=== PATIENT | female | born 1940 | race Caucasian/White ===

== ENCOUNTER → 2018-01-18 | Outpatient (CLI) | payer MEDICARE, OTHER ==
[~2018-01-18] MED LIST: ETAN50PE3 SQ; LEVO-210 PO
[2018-01-18 07:09] LABS: PLATELET COUNT, AUTOMATED 170 K/uL (150-450)
[2018-01-18 09:24] LABS: LDL CHOLESTEROL 95 mg/dl
== END ==
LOC: LAB 06:50
PROVIDERS: ATTEND Family Medicine
DX: E78.5 Hyperlipidemia, unspecified (principal); E03.9 Hypothyroidism, unspecified; D72.819 Decreased white blood cell count, unspecified; M06.9 Rheumatoid arthritis, unspecified
CPT/HCPCS: 36415; 82040; 82247; 82310; 82374; 82435; 82465; 82565; 82947; 83718; 84075; 84132; 84155; 84295; 84443; 84450; 84460; 84478; 84520; 85025

== ENCOUNTER 2018-06-18 02:47 | Day surgery (SDC) | payer MEDICARE, OTHER ==
[~2018-06-18] VITALS: Ht 167.6 cm; Wt 62.6 kg
[~2018-06-18 02:47] MED LIST changes: +LEVO150T78 PO
[2018-06-18 13:25] VITALS: BP 176/97
[2018-06-18] MEDS ORDERED: OPHTHALMIC PROCEDURE 2 OS PRN ×2 (14:00)
[2018-06-18] MEDS ORDERED: OPHTHALMIC PROCEDURE 1 OS PRN (14:00)
[2018-06-18] MEDS ORDERED: LIDOCAINE/SOD BICARB 8.4% SYR ID ONE (14:30)
[2018-06-18] MEDS ORDERED: NORMOSOL R SOLN(*) 1000 ML BAG 1,000 ML IV PRN (14:30)
[2018-06-18] MEDS ORDERED: acetaZOLAMIDE 500 MG CAPCR PO ONE (15:30)
[2018-06-18] MEDS ORDERED: MIDAZOLAM 2 MG/2 ML VIAL ONE (15:33)
[2018-06-18 15:37] VITALS: BP 147/77
--- NOTE | 2018-06-18 18:08 | FOSTER LEFT EYE CATARACT ---
EVENT DATE: June 18, 2018 SURGEON: Margarito Cao MD ANESTHESIA: Topical PREOPERATIVE DIAGNOSIS Cataract, left eye. POSTOPERATIVE DIAGNOSIS Cataract, left eye. PROCEDURE Phacoemulsification of cataractous lens with implantation of an intraocular lens, left eye. DESCRIPTION OF PROCEDURE The risks, benefits, and alternatives were carefully discussed with the patient, and preoperative consent was obtained. The patient was brought to the operating room after receiving topical anesthetic. The patient was prepped and draped using sterile technique in the usual manner. A stab incision was made, and the chamber was inflated with preservative-free lidocaine. DuoVisc was injected to inflate the chamber. A 2.2 mm blade was used to enter the anterior chamber. Utrata forceps were used to tear a circular capsulorrhexis. BSS was used to hydrodissect the nucleus. Phaco tip was introduced, and the nucleus was chopped into four quadrants. Each quadrant was removed. The I/A tip was used to remove the cortex. The bag was inflated with ProVisc. The intraocular lens was injected into the capsular bag. The I/A tip was used to remove the ProVisc. The wound was found to be watertight. Vigamox, Nevanac, and Maxitrol ointment were placed in the patient's eye. The patient's eye was patched, and the patient was taken to the recovery room in stable condition. The patient was examined in the recovery room and found to be stable prior to release from the hospital. JOSE
== END 2018-06-18 15:48 | disposition home or self-care (01) ==
LOC: OR 02:47
PROVIDERS: ATTEND Ophthalmology
DX: H25.12 Age-related nuclear cataract, left eye (principal)
CPT/HCPCS: 66984; A9270; J2250; V2632

== ENCOUNTER 2018-08-13 03:25 | Day surgery (SDC) | payer MEDICARE, OTHER ==
[~2018-08-13] VITALS: Ht 167.6 cm; Wt 62.6 kg
[2018-08-13] MEDS ORDERED: OPHTHALMIC PROCEDURE 1 OD PRN (13:30)
[2018-08-13] MEDS ORDERED: OPHTHALMIC PROCEDURE 2 OD PRN ×2 (13:30)
[2018-08-13] MEDS ORDERED: NORMOSOL R SOLN(*) 1000 ML BAG 1,000 ML IV PRN (13:30)
[2018-08-13] MEDS ORDERED: LIDOCAINE/SOD BICARB 8.4% SYR ID ONE (13:30)
[2018-08-13] MEDS ORDERED: acetaZOLAMIDE 500 MG CAPCR PO ONE (13:30)
[2018-08-13 14:04] VITALS: BP 170/75
[2018-08-13 14:58] VITALS: BP 130/81
[2018-08-13] MEDS ORDERED: PROPOFOL EMUL(*) 10MG/ML 20 ML 20 ML ONE (15:06)
[2018-08-13] MEDS ORDERED: MIDAZOLAM 2 MG/2 ML VIAL ONE (15:06)
--- NOTE | 2018-08-13 18:01 | FOSTER LEFT EYE CATARACT ---
EVENT DATE: August 13, 2018 SURGEON: Margarito Cao MD ANESTHESIOLOGIST: Alek Sharma MD ANESTHESIA: MAC PREOPERATIVE DIAGNOSIS Cataract, right eye. POSTOPERATIVE DIAGNOSIS Cataract, right eye. PROCEDURE Phacoemulsification of cataractous lens with implantation of an intraocular lens, right eye. DESCRIPTION OF PROCEDURE The risks, benefits, and alternatives were carefully discussed with the patient, and preoperative consent was obtained. The patient was brought to the operating room after receiving topical anesthetic. The patient was prepped and draped using sterile technique in the usual manner. A stab incision was made, and the chamber was inflated with preservative-free lidocaine. DuoVisc was injected to inflate the chamber. A 2.2 mm blade was used to enter the anterior chamber. Utrata forceps were used to tear a circular capsulorrhexis. BSS was used to hydrodissect the nucleus. Phaco tip was introduced, and the nucleus was chopped into four quadrants. Each quadrant was removed. The I/A tip was used to remove the cortex. The bag was inflated with ProVisc. The intraocular lens was injected into the capsular bag. The I/A tip was used to remove the ProVisc. The wound was found to be watertight. Vigamox, Nevanac, and Maxitrol ointment were placed in the patient's eye. The patient's eye was patched, and the patient was taken to the recovery room in stable condition. The patient was examined in the recovery room and found to be stable prior to release from the hospital. JOSE
== END 2018-08-13 15:15 | disposition home or self-care (01) ==
LOC: OR 03:25
PROVIDERS: ATTEND Ophthalmology
DX: H25.11 Age-related nuclear cataract, right eye (principal)
CPT/HCPCS: 66984; A9270; J2250; J2704; V2632

== ENCOUNTER → 2018-08-20 | Outpatient (CLI) | payer MEDICARE, OTHER ==
[2018-08-20 07:16] LABS: PLATELET COUNT, AUTOMATED 173 K/uL (150-450)
[2018-08-20 07:57] LABS: LDL CHOLESTEROL 95 mg/dl
== END ==
LOC: LAB 06:54
PROVIDERS: ATTEND Family Medicine
DX: E78.5 Hyperlipidemia, unspecified (principal); E03.9 Hypothyroidism, unspecified; M05.9 Rheumatoid arthritis with rheumatoid factor, unspecified; D72.819 Decreased white blood cell count, unspecified
CPT/HCPCS: 36415; 82040; 82247; 82310; 82374; 82435; 82465; 82565; 82947; 83718; 84075; 84132; 84155; 84295; 84443; 84450; 84460; 84478; 84520; 85025

== ENCOUNTER → 2018-09-28 | Outpatient (CLI) | payer MEDICARE, OTHER ==
--- NOTE | 2018-09-29 10:15 | RADIOLOGY IMAGING REPORT ---
FACILITY: [facility] [place] PATIENT NAME: MIROSLAVA NELSON : [id number] MR: [id number] V: [id number] EXAM DATE: ORDERING PHYSICIAN: SHE MATA TECHNOLOGIST: Farideh Leonard PROCEDURE:BILATERAL DIGITAL SCREENING MAMMOGRAM WITH CAD ASSISTED INTERPRETATION & 3D TOMOSYNTHESIS COMPARISON:Prior mammograms dated 11/18/16, 06/06/15, 02/18/13 INDICATIONS:SCREENING FINDINGS: Scattered fibroglandular densities are seen throughout both breasts. The Right breast is smaller than the Left which has a history of prior lumpectomy & radiation therapy. The parenchymal pattern has remained stable throughout the breasts. DIAGNOSTIC CATEGORY 2--BENIGN FINDING. RECOMMENDATIONS: ROUTINE MAMMOGRAM AND CLINICAL EVALUATION. IMPRESSION: BIRADS 2: Benign finding. No significant abnormality is seen. Dictated by: Emilie Barnhart M.D. on 09/28/2018 at 16:41 Transcribed by: CHAVEZ on 09/29/2018 at 10:00 Approved by: Emilie Barnhart M.D. on 09/29/2018 at 10:14 [facility]
== END ==
LOC: MAMO 00:47
PROVIDERS: ATTEND Family Medicine
DX: Z12.31 Encounter for screening mammogram for malignant neoplasm of breast (principal); Z80.3 Family history of malignant neoplasm of breast
CPT/HCPCS: 77063; 77067

== ENCOUNTER → 2019-02-21 | Outpatient (CLI) | payer MEDICARE, OTHER ==
[2019-02-21 07:13] LABS: PLATELET COUNT, AUTOMATED 167 K/uL (150-450)
[2019-02-21 07:52] LABS: LDL CHOLESTEROL 95 mg/dl
== END ==
LOC: LAB 06:56
PROVIDERS: ATTEND Family Medicine
DX: M06.9 Rheumatoid arthritis, unspecified (principal); D72.829 Elevated white blood cell count, unspecified
CPT/HCPCS: 36415; 82040; 82247; 82310; 82374; 82435; 82465; 82565; 82947; 83718; 84075; 84132; 84155; 84295; 84443; 84450; 84460; 84478; 84520; 85025

== ENCOUNTER → 2019-03-03 | Outpatient (CLI) | payer MEDICARE, OTHER | LOC: LAB 13:57 | PROVIDERS: ATTEND Nurse Practitioner | DX: K82.1 Hydrops of gallbladder (principal) | CPT/HCPCS: 88305 ==

== ENCOUNTER 2019-04-27 00:05 | Day surgery (SDC) | payer MEDICARE, OTHER ==
[~2019-04-27] VITALS: Ht 167.6 cm; Wt 62.1 kg
[~2019-04-27 00:05] MED LIST changes: +CALC-83; +CHOL10005 PO; +METO25TA23 PO; +MULT1CAP59 PO; +OMEG-11 PO
[2019-04-27 06:05] VITALS: BP 173/84
[2019-04-27] MEDS ORDERED: NORMOSOL R SOLN(*) 1000 ML BAG 1,000 ML IV PRN (06:30)
[2019-04-27] MEDS ORDERED: LIDOCAINE/SOD BICARB 8.4% SYR ID ONE (06:30)
[2019-04-27] MEDS ORDERED: LIDOCAINE MPF 1% 5 ML VIAL ONE (07:08)
[2019-04-27] MEDS ORDERED: PROPOFOL EMUL(*) 10MG/ML 20 ML 40 ML ONE (07:08)
[2019-04-27] MEDS ORDERED: HYDROCORTISONE 100 MG/2 ML IVP ONE (07:15)
[2019-04-27 08:20] VITALS: BP 112/60
--- NOTE | 2019-04-27 08:32 | Short(Outpt) Discharge Summary ---
Discharge Summary Reason for Hosp/Final Diag: (1) Colon cancer screening Status: Acute Hospital Course & Plan: Colonoscopy with polypectomy x6 completed without problems. Departure Discharge to: Home, Self Care Discharge Instructions Home Meds Reported Medications Levothyroxine Sodium (LEVOTHYROXINE SODIUM) 150 Mcg Tablet, 150 MCG PO QDAY 06/09/18 Etanercept (ENBREL) Unknown Strength Pen.injctr, 50 MG SQ QWEEKF 09/17/17 Diet: Regular Activity: As Tolerated Special Instructions: Your colonoscopy was completed without problems and your prep was excellent (Good Job!!). I removed 6 polyps from your colon and they were sent to pathology. My office will call you in the next week or two to let you know what the polyps are and when your next colonoscopy should be (in 3 or 5 years) depending on how many of the polyps are precancerous. MONO SANTANA MD Apr 27, 2019 08:32
[2019-04-27 08:45] VITALS: BP 136/65
[2019-04-27 09:10] VITALS: BP 156/80
[2019-04-27 09:11] VITALS: BP 151/78
== END 2019-04-27 09:22 | disposition home or self-care (01) ==
LOC: OR 00:05
PROVIDERS: ATTEND Surgery
DX: Z12.11 Encounter for screening for malignant neoplasm of colon (principal); D12.0 Benign neoplasm of cecum; D12.4 Benign neoplasm of descending colon; D12.5 Benign neoplasm of sigmoid colon; D12.3 Benign neoplasm of transverse colon; K63.5 Polyp of colon
CPT/HCPCS: 00811; 45385; 88305; J1720; J2001; J2704